=== PATIENT | female | born 1975 | race Caucasian/White ===

== ENCOUNTER → 2017-11-07 | Outpatient (CLI) | payer BC, OTHER ==
[~2017-11-07] MED LIST: ADVIL100 M2 PO; ALLERGY INJECTION IM; CITRACAL + D C1 EACH PO; GLUCOSAMINE &1 EAC1 PO; NASONEX17 GM INH; ONE-A-DAY WOMENS PO; RELPAX40 MG PO; SINGULAIR 10 MG10 MG PO; ZYRTEC10 M2 PO
== END ==
LOC: BC 04:21
DX: Z12.31 Encounter for screening mammogram for malignant neoplasm of breast (principal)

== ENCOUNTER → 2017-11-11 | Outpatient (CLI) | payer BC, OTHER | LOC: ULTRA 10:17 | DX: N60.02 Solitary cyst of left breast (principal) ==